=== PATIENT | female | born 1950 | race Two or more races ===

== ENCOUNTER 2018-04-29 15:56 | Inpatient (IN) | payer MEDICARE, MEDICAID ==
[~2018-04-29] VITALS: Ht 152.4 cm; Wt 56.7 kg
--- NOTE | 2018-04-29 16:00 | NUR ---
ADMIT A FEMALE PT IN RM 2B, BROUGHT IN BY PARAMEDICS ON 5150 HOLD. ACCORDINGLY, PT KEEPS ON TALKING TO HESRSELF.
[2018-04-29 16:55] LABS: BASOPHILS # (AUTO) 0.1 K/uL (0.0-8.0); BASOPHILS % (AUTO) 1.2 % (0.0-2.0); EOSINOPHILS # (AUTO) 0.3 K/uL (0.0-0.7); EOSINOPHILS % (AUTO) 3.8 % (0.0-7.0); HEMATOCRIT 38.6 % (31.2-41.9); HEMOGLOBIN 12.8 g/dL (10.9-14.3); LYMPHOCYTES # (AUTO) 1.9 K/uL (20.0-40.0); LYMPHOCYTES % (AUTO) 20.6 % (20.5-51.5); MEAN CORPUSCULAR HEMOGLOBIN 30.4 uug (24.7-32.8); MEAN CORPUSCULAR HGB CONC 33 g/dL (32.3-35.6); MEAN CORPUSCULAR VOLUME 91.3 fL (75.5-95.3); MONOCYTES # (AUTO) 0.9 K/uL (2.0-10.0); MONOCYTES % (AUTO) 9.8 % (0.0-11.0); NEUTROPHILS # (AUTO) 5.9 K/uL (1.8-8.9); NEUTROPHILS % (AUTO) 64.6 % (38.5-71.5); PLATELET COUNT (AUTO) 184 K/uL (179-408); RED BLOOD CELL COUNT(AUTO) 4.23 MIL/uL (3.63-4.92); WHITE BLOOD COUNT (AUTO) 9.1 K/uL (3.8-11.8)
[2018-04-29 17:01] LABS: CARBON DIOXIDE 27 mmol/L (21-32); CHLORIDE 105 mmol/L (98-107); CREATININE 1.2 mg/dL (0.6-1.3); GLUCOSE 91 mg/dL (74-106); UREA NITROGEN, BLOOD 31 mg/dL (7-18)
[2018-04-29] MEDS ORDERED: MAG-55 PO (17:07)
[2018-04-29] MEDS ORDERED: DOCU240C26 PO (17:07)
[2018-04-29] MEDS ORDERED: LORA0.5T PO (17:07)
[2018-04-29] MEDS ORDERED: CRAN405C PO (17:07)
[2018-04-29] MEDS ORDERED: ACET-2154 PO (17:07)
[2018-04-29] MEDS ORDERED: NA P133E RC (17:07)
[2018-04-29] MEDS ORDERED: CALC1TAB30 PO (17:07)
[2018-04-29] MEDS ORDERED: TRAZ-182 PO (17:07)
[2018-04-29] MEDS ORDERED: MAG30ORA PO (17:07)
[2018-04-29] MEDS ORDERED: AMLO5TAB7 PO (17:07)
[2018-04-29] MEDS ORDERED: QUET100T PO (17:07)
[2018-04-29] MEDS ORDERED: SENN-167 PO (17:07)
[2018-04-29] MEDS ORDERED: [UNRECOGNIZED DRUG - OTHER] PO (17:07)
[2018-04-29] MEDS ORDERED: VALP250S3 PO (17:07)
[2018-04-29] MEDS ORDERED: MAGN400O6 PO (17:07)
[2018-04-29] MEDS ORDERED: FERR325T24 PO (17:07)
[2018-04-29] MEDS ORDERED: ZINC220C6 PO (17:07)
[2018-04-29] MEDS ORDERED: PSYLLIUM PO (17:07)
[2018-04-29] MEDS ORDERED: DULCOLAX SUPP PR (17:07)
[2018-04-29] MEDS ORDERED: ASCO500C18 PO (17:07)
[2018-04-29] MEDS ORDERED: MULT1TAB73 PO (17:07)
[2018-04-29 17:08] LABS: ALANINE AMINOTRANSFERASE 22 U/L (14-59); ALKALINE PHOSPHATASE 124 U/L (50-136); ASPARTATE AMINOTRANSFERASE 20 U/L (15-37); BILIRUBIN,DIRECT 0.1 mg/dL (0.0-0.2); BILIRUBIN,TOTAL 0.2 mg/dL (0.2-1.0); TOTAL PROTEIN, SERUM 7.9 g/dL (6.4-8.2)
[2018-04-29 17:12] LABS: ACETAMINOPHEN < 2.0 ug/mL (10-30)
[2018-04-29 17:14] LABS: ETHANOL < 3 MG/DL (0-0)
[2018-04-29] MEDS ORDERED: OLANZAPINE 5 MG TABLET PO ONE (17:45)
[2018-04-29] MEDS ORDERED: OLANZAPINE 5 MG TABLET ONE (17:51)
--- NOTE | 2018-04-29 18:00 | NUR ---
.PT IS BEING ADMITTED TO U RM 139A. REPORT GIVEN TO ABHAY CALDERÓN.
--- NOTE | 2018-04-29 18:30 | NUR ---
PT TRANSFERRED TO [facility] VIA W/C. CONDITION IS STABLE.
--- NOTE | 2018-04-29 18:52 | NUR ---
1820 Report received from ER nurse, Isadora regarding patient who will be admitted to MHU. 1830 Received patient from ER per w/c , alert and Ox2 . Respiration even and unlabored , no s/s acute distress. Denies S/s pain. Ushered to her room ambulating, given sandwich for dinner. Will give report to next shift.
[2018-04-29] MEDS ORDERED: MAGNESIUM HYDROXIDE 30 ML LIQUID UDC PO PRN ×2 (19:00→22:45)
[2018-04-29] MEDS ORDERED: MAG HYDROX/AL HYDROX/SIMETH 30 ML LIQUID UDC PO PRN (19:00)
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
[2018-04-29 21:34] VITALS: BP 133/71
[2018-04-29] MEDS: ACETAMINOPHEN 325 MG TABLET PO PRN (21:47)
[2018-04-29] MEDS: ZOLPIDEM 5 MG TABLET PO PRN (21:50)
--- NOTE | 2018-04-29 21:50 | NUR ---
PATIENT APPROACHED THE NURSING STATION, SHE STATED THAT SHE IS HAVING LEFT EAR DISCOMFORT. TYLENOL 650MG PO PRN WAS GIVEN FOR PAIN. WILL MONITOR. SHE ALSO STATED THAT SHE WAS UNABLE TO SLEEP. AMBIEN 5MG PO PRN WAS GIVEN FOR INSOMNIA. PT CONTINUE REFUSING BODY ASSESSMENT. WILL CONTINUE TO MONITOR.
[2018-04-29] MEDS ORDERED: BISACODYL 10 MG SUPP.RECT RC PRN (22:45)
[2018-04-29] MEDS ORDERED: SENNOSIDES 1 TABLET PO PRN (22:45)
[2018-04-29] MEDS: LORAZEPAM 0.5 MG TABLET PO PRN (23:04)
--- NOTE | 2018-04-29 23:10 | NUR ---
PATIENT APPROACHED THE NURSING STATION, SHE WAS NOTED ANXIOUS AND IRRITABLE. SHE ASKED FOR SNACKS. ATIVAN 0.5MG PO PRN WAS GIVEN FOR ANXIETY/AGITATION. SNACKS WERE ALSO GIVEN, WILL CONTINUE TO MONITOR,
--- NOTE | 2018-04-30 06:52 | NUR ---
PATIENT SLEPT FOR APPROX 7.45 HRS THROUGH THE NIGHT. URINE WAS OBTAINED AND SENT OUT FOR URINALYSIS, UA C&S AND UA DRUG SCREENING. PATIENT CONTINUE REFUSING BODY ASSESSMENT. WILL CONTINUE TO MONITOR.
[2018-04-30 07:07] LABS: *BILIRUBIN,URIN NEGATIVE (NEGATIVE); *BLOOD, URINE NEGATIVE (NEGATIVE); *CLARITY,URINE CLEAR (CLEAR); *COLOR,URINE YELLOW (YELLOW); *KETONES,URINE NEGATIVE (NEGATIVE); *PROTEIN,URINE NEGATIVE (NEGATIVE); *UROBILINOGEN,URINE 0.2 E.U./dl (NORMAL); LEUKOCYTE ESTERASE ,URINE TRACE (NEGATIVE); NITRITE, URINE NEGATIVE (NEGATIVE); PH,URINE 6.5 (5.0-8.0); UGLUCOSE NEGATIVE (NEGATIVE)
[2018-04-30 07:11] LABS: BACTERIA,URINE FEW /HPF (NONE SEEN); RBC,URINE 0-3 /HPF (0-3); SQUAMOUS EPITHELIAL CELL,UR FEW /HPF (NONE SEEN); WBC,URINE 0-3 /HPF (0-3)
[2018-04-30 07:27] LABS: BASOPHILS # (AUTO) 0.1 K/uL (0.0-8.0); BASOPHILS % (AUTO) 1.1 % (0.0-2.0); EOSINOPHILS # (AUTO) 0.4 K/uL (0.0-0.7); EOSINOPHILS % (AUTO) 5.9 % (0.0-7.0); HEMATOCRIT 37.9 % (31.2-41.9); HEMOGLOBIN 12.8 g/dL (10.9-14.3); LYMPHOCYTES # (AUTO) 1.4 K/uL (20.0-40.0); LYMPHOCYTES % (AUTO) 22.2 % (20.5-51.5); MEAN CORPUSCULAR HEMOGLOBIN 30.8 uug (24.7-32.8); MEAN CORPUSCULAR HGB CONC 34 g/dL (32.3-35.6); MEAN CORPUSCULAR VOLUME 91.4 fL (75.5-95.3); MONOCYTES # (AUTO) 0.9 K/uL (2.0-10.0); MONOCYTES % (AUTO) 15.3 % (0.0-11.0); NEUTROPHILS # (AUTO) 3.4 K/uL (1.8-8.9); NEUTROPHILS % (AUTO) 55.5 % (38.5-71.5); PLATELET COUNT (AUTO) 181 K/uL (179-408); RED BLOOD CELL COUNT(AUTO) 4.15 MIL/uL (3.63-4.92); WHITE BLOOD COUNT (AUTO) 6.1 K/uL (3.8-11.8)
[2018-04-30 07:30] VITALS: BP 136/61
[2018-04-30] MEDS ORDERED: SENNOSIDES 1 TABLET PO PRN (07:30)
[2018-04-30 07:45] LABS: *AMPHETAMINE, URINE NEGATIVE (NEGATIVE); *BARBITURATE, URINE NEGATIVE (NEGATIVE); *CANNABINOID, URINE NEGATIVE (NEGATIVE); *COCCAINE, URINE NEGATIVE (NEGATIVE); *OPIATE, URINE NEGATIVE (NEGATIVE); *PHENCYCLIDINE SCREEN,URINE NEGATIVE (NEGATIVE)
[2018-04-30 08:34] LABS: CREATININE 1.1 mg/dL (0.6-1.3); MAGNESIUM 2.1 mg/dL (1.8-2.4); PHOSPHOROUS 5.2 mg/dL (2.5-4.9); POTASSIUM 5.1 mmol/L (3.5-5.1)
[2018-04-30] MEDS ORDERED: Medication Not On Formulary EA (Docusate Calcium 240 MG) PO SCH (09:00)
[2018-04-30] MEDS ORDERED: Medication Not On Formulary EA (Ascorbic Acid (Vitamin C) 500 MG) PO SCH (09:00)
[2018-04-30] MEDS ORDERED: Medication Not On Formulary EA (Multivitamins (Multivitamin) 1 TAB) PO SCH (09:00)
[2018-04-30] MEDS: MULTIVITAMINS,THERAPEUTIC TABLET PO SCH (09:22)
[2018-04-30] MEDS: ZINC SULFATE 220 MG CAPSULE PO SCH (09:22)
[2018-04-30] MEDS: AMLODIPINE 5 MG TABLET PO SCH (09:23)
[2018-04-30] MEDS: ASCORBIC ACID 500 MG TABLET PO SCH (09:23)
[2018-04-30] MEDS: DOCUSATE SODIUM 250 MG CAPSULE PO SCH (09:23)
[2018-04-30] MEDS: FERROUS SULFATE 325 MG TABEC PO SCH (09:48)
[2018-04-30] MEDS: CALCIUM CARB/VITAMIN D 500MG-200UNITS TABLET PO SCH (09:48)
[2018-04-30] MEDS: NICOTINE 7 MG/24HR PATCH TD SCH (09:48)
[2018-04-30 10:04] LABS: THYROID STIMULATING HORMONE 3.433 mIU/mL (0.358-3.740)
[2018-04-30] MEDS: OLANZAPINE ZYDIS 5 MG TAB.RAPDIS PO SCH ×2 (11:41→16:52)
[2018-04-30] MEDS: ACETAMINOPHEN 325 MG TABLET PO PRN ×2 (11:41→23:08)
[2018-04-30] MEDS: DIVALPROEX 250 MG TABLET.DR PO SCH ×3 (11:43→16:52)
[2018-04-30 11:57] LABS: LYMPHOCYTES % (MANUAL) 22 % (20-40); MONOCYTES % (MANUAL) 15 % (2-10)
[2018-04-30 11:58] LABS: EOSINOPHILS % (MANUAL) 6 % (0-8); NEUTROPHILS % (MANUAL) 57 % (42-75)
[2018-04-30] MEDS: CEPHALEXIN MONOHYDRATE 500 MG CAPSULE PO SCH ×3 (12:33→20:41)
--- NOTE | 2018-04-30 14:13 | NUR ---
1300 DEPAKOTE DOSE 250 MG NOT ADMINISTERED TOO CLOSE TO FIRST DOSE WHICH WAS GIVEN AT 1143 aLSO kEFLEX 500 MG CAP. STARTED AT 1233.
--- NOTE | 2018-04-30 14:17 | NUR ---
KEFLEX 500 MG DUE AT 1400 NOT GIVEN TOO CLOSE TO FIRST DOSE WHICH WAS GIVEN 1228
--- NOTE | 2018-04-30 14:55 | NUR ---
Firearms Report: Salon Professional completed and submitted [employer] Firearms Report on 04/30/18 for 5150 DTO certification.
[2018-04-30 16:04] VITALS: BP 114/62
--- NOTE | 2018-04-30 20:00 | NUR ---
RECEIVED PATIENT IN THE HALLWAY, SHE IS NOTED A/O X 2. SHE IS ABLE TO AMBULATE WITH STEADY GAIT AND ABLE TO MAKE HER NEEDS KNOWN. SHE IS NOTED HYPERVERBAL, LOUD, PRESSURED SPEECH, DEMANDING, EATS A LOT, COMPULSIVELY OVER EATING, PACING THE HALLWAY. NO AGGRESSIVE/COMBATIVE BX NOTED AT THIS TIME. ATIVAN 0.5MG PO PRN WAS GIVEN FOR ANXIETY/AGITATION. DENIES PAIN, V/S STABLE. PATIENT ABLE TO COMPLY WITH MEDICATION REGIMENT. SAFETY EMPHASIS, BED AT LOWEST POSITION, WHEELS LOCKED, AND FREQUENT HEAD CHECKS. WILL CONTINUE TO MONITOR,
[2018-04-30] MEDS: LORAZEPAM 0.5 MG TABLET PO PRN (20:02)
[2018-04-30 20:33] VITALS: BP 145/82
[2018-04-30] MEDS: ZOLPIDEM 5 MG TABLET PO PRN (21:53)
--- NOTE | 2018-05-01 01:49 | NUR ---
PATIENT APPROACHED THE NURSING STATION. SHE STATED THAT SHE JUST WOKE UP AND WAS UNABLE TO GO BACK TO SLEEP. SHE ASKED FOR MILK. SHE IS NOW SITTING IN A CHAIR IN THE MAIN HALLWAY, SHE IS NOTED CALM AND PLEASANT. WILL CONTINUE TO MONITOR.
[2018-05-01] MEDS: LORAZEPAM 0.5 MG TABLET PO PRN ×3 (02:19→22:39)
[2018-05-01] MEDS: CEPHALEXIN MONOHYDRATE 500 MG CAPSULE PO SCH ×3 (06:13→21:04)
--- NOTE | 2018-05-01 07:07 | NUR ---
PATIENT SLEPT FOR APPROX 1.OO HR THROUGH THE NIGHT. CONTINUE COMPLIANT WITH MEDICATION AT THIS TIME.
[2018-05-01 08:16] VITALS: BP 134/72
[2018-05-01] MEDS: DIVALPROEX 250 MG TABLET.DR PO SCH ×3 (08:18→16:48)
[2018-05-01] MEDS: OLANZAPINE ZYDIS 5 MG TAB.RAPDIS PO SCH ×2 (08:18→20:33)
[2018-05-01] MEDS: FERROUS SULFATE 325 MG TABEC PO SCH (08:18)
[2018-05-01] MEDS: DOCUSATE SODIUM 250 MG CAPSULE PO SCH (08:18)
[2018-05-01] MEDS: ASCORBIC ACID 500 MG TABLET PO SCH (08:19)
[2018-05-01] MEDS: MULTIVITAMINS,THERAPEUTIC TABLET PO SCH (08:19)
[2018-05-01] MEDS: AMLODIPINE 5 MG TABLET PO SCH (08:19)
[2018-05-01] MEDS: ZINC SULFATE 220 MG CAPSULE PO SCH (08:19)
[2018-05-01] MEDS: NICOTINE 7 MG/24HR PATCH TD SCH (08:20)
[2018-05-01] MEDS: CALCIUM CARB/VITAMIN D 500MG-200UNITS TABLET PO SCH (08:20)
--- NOTE | 2018-05-01 10:45 | NUR ---
Initial Discharge Instructions: Patient currently resides at [facility] [[address] [place] [address]; ]. Spoke with CJ at the facility who reports they will accept the patient back upon discharge. SW will continue to collaborate with pt and MD regarding most appropriate discharge plans for this patient. SW will form a safe and proper discharge plan.
[2018-05-01] MEDS ORDERED: OLANZAPINE ZYDIS 5 MG TAB.RAPDIS PO PRN (14:15)
[2018-05-01 16:10] VITALS: BP 125/74
[2018-05-01] MEDS: MUPIROCIN 2% OINT 22 GM TUBE NS SCH ×2 (16:49→20:33)
[2018-05-01] MEDS: BENZOCAINE/MENTH/CETYLPYRD LOZENGE MM PRN ×3 (17:49→20:34)
[2018-05-01 20:48] VITALS: BP 130/72
[2018-05-02] MEDS: LORAZEPAM 0.5 MG TABLET PO PRN ×2 (03:51→19:54)
--- NOTE | 2018-05-02 04:54 | NUR ---
up and about. aaox2 took only an hour of sleep. most of the time awake all night. needs attended. took all her meds. became restless and anxious ativan given @ 2230. on antibiotic. also complained of sore throat cepacol lozenges given. On contact isolation for MRSA on the nares. on bactroban. became loud and disruptive and keeps on walking back and forth from room to the hallwiu. Had another dose of ativan. still very loud and anxious. will monitor patient's behavior.
[2018-05-02] MEDS: CEPHALEXIN MONOHYDRATE 500 MG CAPSULE PO SCH (06:24)
[2018-05-02] MEDS: FERROUS SULFATE 325 MG TABEC PO SCH (06:36)
[2018-05-02] MEDS: MULTIVITAMINS,THERAPEUTIC TABLET PO SCH (08:07)
[2018-05-02] MEDS: ZINC SULFATE 220 MG CAPSULE PO SCH (08:07)
[2018-05-02] MEDS: DIVALPROEX 250 MG TABLET.DR PO SCH ×3 (08:07→16:49)
[2018-05-02] MEDS: ASCORBIC ACID 500 MG TABLET PO SCH (08:07)
[2018-05-02] MEDS: DOCUSATE SODIUM 250 MG CAPSULE PO SCH (08:07)
[2018-05-02] MEDS: CALCIUM CARB/VITAMIN D 500MG-200UNITS TABLET PO SCH (08:07)
[2018-05-02] MEDS: OLANZAPINE ZYDIS 5 MG TAB.RAPDIS PO SCH ×3 (08:07→19:55)
[2018-05-02] MEDS: NICOTINE 7 MG/24HR PATCH TD SCH (08:08)
[2018-05-02] MEDS: MUPIROCIN 2% OINT 22 GM TUBE NS SCH ×2 (08:08→19:54)
[2018-05-02] MEDS: AMLODIPINE 5 MG TABLET PO SCH (08:08)
[2018-05-02 08:22] VITALS: BP 122/75
[2018-05-02 16:00] VITALS: BP 104/68
[2018-05-02] MEDS: ACETAMINOPHEN 325 MG TABLET PO PRN (19:54)
[2018-05-02 19:56] VITALS: BP 117/62
[2018-05-02] MEDS: BENZTROPINE MESYLATE 1 MG TABLET PO SCH (22:57)
[2018-05-02] MEDS: HALOPERIDOL 5 MG TABLET PO SCH (22:57)
[2018-05-03] MEDS: TEMAZEPAM 7.5 MG CAPSULE PO PRN
--- NOTE | 2018-05-03 06:00 | NUR ---
End of shift report: Patient compliant with meds & care, morning shower provided today. No acute distress, vital signs WNL. Slept 4 hrs.
[2018-05-03] MEDS: FERROUS SULFATE 325 MG TABEC PO SCH (06:07)
[2018-05-03 07:30] VITALS: BP 130/59
[2018-05-03] MEDS: CALCIUM CARB/VITAMIN D 500MG-200UNITS TABLET PO SCH (08:22)
[2018-05-03] MEDS: AMLODIPINE 5 MG TABLET PO SCH (08:22)
[2018-05-03] MEDS: BENZTROPINE MESYLATE 1 MG TABLET PO SCH ×2 (08:22→20:08)
[2018-05-03] MEDS: NICOTINE 7 MG/24HR PATCH TD SCH (08:22)
[2018-05-03] MEDS: DOCUSATE SODIUM 250 MG CAPSULE PO SCH (08:22)
[2018-05-03] MEDS: DIVALPROEX 250 MG TABLET.DR PO SCH ×3 (08:22→16:48)
[2018-05-03] MEDS: HALOPERIDOL 5 MG TABLET PO SCH ×2 (08:22→20:08)
[2018-05-03] MEDS: ZINC SULFATE 220 MG CAPSULE PO SCH (08:22)
[2018-05-03] MEDS: MULTIVITAMINS,THERAPEUTIC TABLET PO SCH (08:22)
[2018-05-03] MEDS: ASCORBIC ACID 500 MG TABLET PO SCH (08:22)
[2018-05-03] MEDS: MUPIROCIN 2% OINT 22 GM TUBE NS SCH ×2 (08:23→20:08)
[2018-05-03 09:36] VITALS: BP 130/59
[2018-05-03] MEDS: BENZOCAINE/MENTH/CETYLPYRD LOZENGE MM PRN (10:33)
[2018-05-03 15:12] VITALS: BP 116/69
[2018-05-03 20:39] VITALS: BP 116/72
[2018-05-04] MEDS: TEMAZEPAM 7.5 MG CAPSULE PO PRN ×2 (00:41→21:15)
[2018-05-04] MEDS: BENZOCAINE/MENTH/CETYLPYRD LOZENGE MM PRN (01:58)
--- NOTE | 2018-05-04 02:23 | NUR ---
GPS: Pt.still awake at this time. Restoril 7.5mg given earlier was ineffective. Refused to have repeat dose of Restoril when offered. Pt.continues to be labile,intrusive and easily irritable. Easily gets angry when being re-directed. Will continue to monitor.
[2018-05-04] MEDS: FERROUS SULFATE 325 MG TABEC PO SCH (06:35)
--- NOTE | 2018-05-04 06:42 | NUR ---
GPS: Remain uncooperative with care. slept 1:30 hrs only through the night,offered sleeping medication but patient refused stated you want me to sleep forever. compliant with AM PO meds. No acute distress, vital signs Wnl. continue plan of care. Addendum: 05/04/18 at 0654 by PAIGE ISLAS LVN patient refused repeat restoril 7.5 mg . compliant with first prn dose.
[2018-05-04 07:04] LABS: BILIRUBIN,TOTAL 0.2 mg/dL (0.2-1.0); CREATININE 1.2 mg/dL (0.6-1.3); MAGNESIUM 2.3 mg/dL (1.8-2.4); PHOSPHOROUS 5.3 mg/dL (2.5-4.9); POTASSIUM 5.2 mmol/L (3.5-5.1); TOTAL PROTEIN, SERUM 8.3 g/dL (6.4-8.2)
[2018-05-04 07:13] LABS: BASOPHILS # (AUTO) 0.1 K/uL (0.0-8.0); BASOPHILS % (AUTO) 1.4 % (0.0-2.0); EOSINOPHILS # (AUTO) 0.4 K/uL (0.0-0.7); HEMATOCRIT 38.7 % (31.2-41.9); HEMOGLOBIN 12.8 g/dL (10.9-14.3); LYMPHOCYTES # (AUTO) 1.9 K/uL (20.0-40.0); LYMPHOCYTES % (AUTO) 27.9 % (20.5-51.5); MEAN CORPUSCULAR HEMOGLOBIN 30.2 uug (24.7-32.8); MEAN CORPUSCULAR HGB CONC 33 g/dL (32.3-35.6); MEAN CORPUSCULAR VOLUME 91.5 fL (75.5-95.3); MONOCYTES # (AUTO) 0.9 K/uL (2.0-10.0); MONOCYTES % (AUTO) 13.1 % (0.0-11.0); NEUTROPHILS # (AUTO) 3.5 K/uL (1.8-8.9); NEUTROPHILS % (AUTO) 51.6 % (38.5-71.5); PLATELET COUNT (AUTO) 240 K/uL (179-408); RED BLOOD CELL COUNT(AUTO) 4.22 MIL/uL (3.63-4.92); WHITE BLOOD COUNT (AUTO) 6.7 K/uL (3.8-11.8)
[2018-05-04 07:30] VITALS: BP 113/62
[2018-05-04] MEDS: MULTIVITAMINS,THERAPEUTIC TABLET PO SCH (08:09)
[2018-05-04] MEDS: NICOTINE 7 MG/24HR PATCH TD SCH (08:09)
[2018-05-04] MEDS: ZINC SULFATE 220 MG CAPSULE PO SCH (08:09)
[2018-05-04] MEDS: DIVALPROEX 250 MG TABLET.DR PO SCH ×3 (08:09→16:34)
[2018-05-04] MEDS: HALOPERIDOL 5 MG TABLET PO SCH (08:09)
[2018-05-04] MEDS: BENZTROPINE MESYLATE 1 MG TABLET PO SCH (08:09)
[2018-05-04] MEDS: AMLODIPINE 5 MG TABLET PO SCH (08:09)
[2018-05-04] MEDS: CALCIUM CARB/VITAMIN D 500MG-200UNITS TABLET PO SCH (08:09)
[2018-05-04] MEDS: ASCORBIC ACID 500 MG TABLET PO SCH (08:09)
[2018-05-04] MEDS: DOCUSATE SODIUM 250 MG CAPSULE PO SCH (08:21)
[2018-05-04] MEDS: MUPIROCIN 2% OINT 22 GM TUBE NS SCH ×2 (08:21→20:11)
[2018-05-04 16:24] VITALS: BP 116/60
[2018-05-04 20:00] VITALS: BP 148/61
--- NOTE | 2018-05-04 20:10 | NUR ---
PATIENT IS VERY AGITATED. GIVEN ATIVAN 0.5MG PO PRN FOR AGITATION. NEEDS FREQUENT REDIRECTION. WILL CONTINUE TO MONITOR AND ASSESS.
[2018-05-04] MEDS: LORAZEPAM 0.5 MG TABLET PO PRN (20:11)
--- NOTE | 2018-05-04 21:15 | NUR ---
PATIENT CALM AT THIS TIME. LABILE MOOD. PATIENT GIVEN RESTORIL 7.5MG PO PRN FOR SLEEP. WILL CONTINUE TO MONITOR AND ASSESS.
[2018-05-05] MEDS: LORAZEPAM 0.5 MG TABLET PO PRN ×2 (05:03→23:21)
[2018-05-05] MEDS: ACETAMINOPHEN 325 MG TABLET PO PRN (05:03)
--- NOTE | 2018-05-05 05:04 | NUR ---
PATIENT IS VERY ANXIOUS AND PACING IN HALLWAY. PATIENT IS ALSO C/O HEADACHE. GIVEN ATIVAN 0.5MG PO PRN FOR ANXIETY AND TYLENOL 650MG PO PRN FOR HEADACHE. WILL CONTINUE TO MONITOR AND ASSESS.
--- NOTE | 2018-05-05 06:36 | NUR ---
PATIENT AWAKE. CONTINUES WITH LABILE MOOD. EASILY AGITATED. PATIENT SLEPT ONLY 2 HOURS THROUGHOUT THE NIGHT. ALL NEEDS ATTENDED. WILL CONTINUE TO MONITOR.
[2018-05-05 07:16] LABS: CREATININE 1.2 mg/dL (0.6-1.3); PHOSPHOROUS 4.8 mg/dL (2.5-4.9); POTASSIUM 5.3 mmol/L (3.5-5.1)
[2018-05-05 07:30] VITALS: BP 123/69
[2018-05-05] MEDS: FERROUS SULFATE 325 MG TABEC PO SCH (08:47)
[2018-05-05] MEDS: BENZTROPINE MESYLATE 1 MG TABLET PO SCH ×5 (08:47→16:57)
[2018-05-05] MEDS: DOCUSATE SODIUM 250 MG CAPSULE PO SCH (08:47)
[2018-05-05] MEDS: MULTIVITAMINS,THERAPEUTIC TABLET PO SCH (08:48)
[2018-05-05] MEDS: ASCORBIC ACID 500 MG TABLET PO SCH (08:48)
[2018-05-05] MEDS: ZINC SULFATE 220 MG CAPSULE PO SCH (08:48)
[2018-05-05] MEDS: AMLODIPINE 5 MG TABLET PO SCH (08:48)
[2018-05-05] MEDS: CALCIUM CARB/VITAMIN D 500MG-200UNITS TABLET PO SCH (08:49)
[2018-05-05] MEDS: DIVALPROEX 250 MG TABLET.DR PO SCH ×4 (08:52→20:22)
[2018-05-05] MEDS: NICOTINE 7 MG/24HR PATCH TD SCH (08:52)
[2018-05-05] MEDS: MUPIROCIN 2% OINT 22 GM TUBE NS SCH ×2 (08:52→20:22)
[2018-05-05] MEDS ORDERED: HALOPERIDOL 5 MG TABLET PO SCH (09:00)
[2018-05-05] MEDS ORDERED: SODIUM POLYSTYRENE SULFONATE 15 G/60 ML LIQUID UDC PO ONE (10:30)
[2018-05-05] MEDS: HALOPERIDOL 5 MG TABLET PO SCH ×3 (12:21→20:22)
[2018-05-05 15:42] VITALS: BP 119/33
[2018-05-05 19:30] VITALS: BP 133/67
--- NOTE | 2018-05-05 19:30 | NUR ---
Received patient from day shift nurse. Patient currently in the day room in a labile mood. Noted to be easily agitated upon assessment. Vital signs within range at start of shift. Patient denying S.I. & has no active plan. On contact isolation for MRSA of the nares. on a 14 day hold until 05/15/18. Room checked for safety at start of shift. Will continue to provide a safe & therapeutic environment.
[2018-05-05] MEDS: BENZOCAINE/MENTH/CETYLPYRD LOZENGE MM PRN (21:09)
--- NOTE | 2018-05-06 06:21 | NUR ---
Patient agreed to shower last night before sleeping. Compliant with medications. Had to reorient patient several times during the shift. Easily agitated & continues with labile mood. Administered Ativan 0.5mg PRN for agitation & restlessness. Tolerated well. Patient slept total of 4.5 hours during the night. All needs attended to promptly. Safety & comfort measures provided. Will endorse accordingly to day shift nurse.
[2018-05-06] MEDS: FERROUS SULFATE 325 MG TABEC PO SCH (06:34)
[2018-05-06 07:30] VITALS: BP 123/58
[2018-05-06] MEDS: HALOPERIDOL 5 MG TABLET PO SCH ×4 (08:10→20:02)
[2018-05-06] MEDS: ASCORBIC ACID 500 MG TABLET PO SCH (08:10)
[2018-05-06] MEDS: DIVALPROEX 250 MG TABLET.DR PO SCH ×4 (08:10→20:01)
[2018-05-06] MEDS: ZINC SULFATE 220 MG CAPSULE PO SCH (08:11)
[2018-05-06] MEDS: MULTIVITAMINS,THERAPEUTIC TABLET PO SCH (08:11)
[2018-05-06] MEDS: AMLODIPINE 5 MG TABLET PO SCH (08:11)
[2018-05-06] MEDS: BENZTROPINE MESYLATE 1 MG TABLET PO SCH ×4 (08:11→17:00)
[2018-05-06] MEDS: DOCUSATE SODIUM 250 MG CAPSULE PO SCH (08:11)
[2018-05-06] MEDS: MUPIROCIN 2% OINT 22 GM TUBE NS SCH ×2 (08:12→20:01)
[2018-05-06] MEDS: CALCIUM CARB/VITAMIN D 500MG-200UNITS TABLET PO SCH (08:12)
[2018-05-06] MEDS: NICOTINE 7 MG/24HR PATCH TD SCH (08:13)
[2018-05-06] MEDS: BENZOCAINE/MENTH/CETYLPYRD LOZENGE MM PRN (10:17)
[2018-05-06] MEDS: LORAZEPAM 0.5 MG TABLET PO PRN ×2 (11:40→22:18)
[2018-05-06 17:26] VITALS: BP_SYST 115; BP_SYST 94; BP_DIAS 54; BP_DIAS 74
[2018-05-06 20:20] VITALS: BP 124/62
[2018-05-06] MEDS: TEMAZEPAM 7.5 MG CAPSULE PO PRN (21:19)
--- NOTE | 2018-05-06 22:00 | NUR ---
received to care, pleasant upon approach. intrusive and pacing at times, requiring frequent redirection. PRN restoril was given at 2118. as of 2199, she remains awake, pacing intermittently. will continue to monitor closely.
--- NOTE | 2018-05-06 22:18 | NUR ---
remains awake. PRN ativan given, for anxiety.
--- NOTE | 2018-05-07 00:30 | NUR ---
appears to be asleep. no distress noted.
--- NOTE | 2018-05-07 06:00 | NUR ---
slept 4.0 hours total. continues to sleep. no distress noted.
[2018-05-07 07:30] VITALS: BP 175/69
[2018-05-07] MEDS: DIVALPROEX 250 MG TABLET.DR PO SCH (08:13)
[2018-05-07] MEDS: HALOPERIDOL 5 MG TABLET PO SCH (08:13)
[2018-05-07] MEDS: ZINC SULFATE 220 MG CAPSULE PO SCH (08:13)
[2018-05-07] MEDS: BENZTROPINE MESYLATE 1 MG TABLET PO SCH (08:13)
[2018-05-07] MEDS: ASCORBIC ACID 500 MG TABLET PO SCH (08:13)
[2018-05-07] MEDS: MUPIROCIN 2% OINT 22 GM TUBE NS SCH (08:13)
[2018-05-07] MEDS: FERROUS SULFATE 325 MG TABEC PO SCH (08:13)
[2018-05-07] MEDS: MULTIVITAMINS,THERAPEUTIC TABLET PO SCH (08:13)
[2018-05-07] MEDS: DOCUSATE SODIUM 250 MG CAPSULE PO SCH (08:13)
[2018-05-07] MEDS: NICOTINE 7 MG/24HR PATCH TD SCH (08:14)
[2018-05-07] MEDS: CALCIUM CARB/VITAMIN D 500MG-200UNITS TABLET PO SCH (08:14)
[2018-05-07 08:19] VITALS: BP 175/69
[2018-05-07] MEDS: AMLODIPINE 5 MG TABLET PO SCH (08:19)
--- NOTE | 2018-05-07 09:12 | NUR ---
Discharge Note: Patient will be discharged back to [facility] [[address] [place] [address]; ] via ambulance. Please arrange an ambulance for this patient. Spoke with Jd and DAIANA at the facility who state they are ready to accept the patient back today. Patient does not have any family or friends to contact at this time. Patient is aware and agreeable with discharge plans. Patient will follow-up at the facility with Dr. Cole (Restaurant Delivery Driver) and Dr. Cornelius (Psychiatrist). For smoking cessation, patient was referred to [employer] 800-LUNGUSA and [employer] [phone].
--- NOTE | 2018-05-07 13:01 | NUR ---
PT TRANSFERRED TO [facility] [place] VIA AMBULANCE. REPORT GIVEN TO STEPHANE SALINAS.
--- NOTE | 2018-05-07 13:03 | NUR ---
PT DISCHARGED VIA AMBULANCE. PT HAS NO SUICIDAL/HOMICIDAL IDEATION, VISUAL/AUDITORY HALLUCINATION. PT ATE LUNCH IN DINING AREA, PLEASANT WITH FELLOW RESIDENTS. VITAL SIGNS TAKEN AND STABLE. REPORT GIVEN TO AMBULANCE PERSONNEL BY STEPHANE FULLER.
== END 2018-05-07 12:45 | DRG 885 ==
LOC: ER 15:57 → GPS 18:07
PROVIDERS: ADMIT Psychiatry & Neurology Psychosomatic Medicine; ATTEND Internal Medicine
DX: F25.0 Schizoaffective disorder, bipolar type (principal); E02 Subclinical iodine-deficiency hypothyroidism; E83.39 Other disorders of phosphorus metabolism; Z22.322 Carrier or suspected carrier of Methicillin resistant Staphylococcus aureus; F09 Unspecified mental disorder due to known physiological condition; R79.89 Other specified abnormal findings of blood chemistry; I10 Essential (primary) hypertension; F17.200 Nicotine dependence, unspecified, uncomplicated; E87.5 Hyperkalemia
CPT/HCPCS: 36415; 70450; 80164; 80307; 83735; 84100; 84132; 84443; 85025; 87086; A4663; A9150; G0480; G0480-TC; J3490

== ENCOUNTER 2018-06-02 20:02 | Inpatient (IN) | payer MEDICARE, MEDICAID ==
[~2018-06-02] VITALS: Ht 162.6 cm; Wt 56.7 kg
[~2018-06-02 20:02] MED LIST: ACET-2154 PO; AMLO5TAB7 PO; ASCO500C18 PO; CALC1TAB30 PO; CRAN405C PO; DOCU240C26 PO; DULCOLAX SUPP PR; FERR325T24 PO; MAG-55 PO; MAG30ORA PO; MAGN400O6 PO; MULT1TAB73 PO; NA P133E RC; PSYLLIUM PO; SENN-167 PO; ZINC220C6 PO; [UNRECOGNIZED DRUG - OTHER] PO
--- NOTE | 2018-06-02 20:11 | NUR ---
Pt brought in from [facility] with 5150 hold for DTO/GD to be admitted to MHU.
[2018-06-02] MEDS ORDERED: DIVA250T4 PO (20:23)
[2018-06-02] MEDS ORDERED: MULT1TAB73 PO (20:23)
[2018-06-02] MEDS ORDERED: AMLO5TAB7 PO (20:23)
[2018-06-02] MEDS ORDERED: DOCU100C36 PO (20:23)
[2018-06-02] MEDS ORDERED: HALO5TAB12 PO (20:23)
[2018-06-02] MEDS ORDERED: LORA-258 PO (20:23)
[2018-06-02] MEDS ORDERED: FERR325T24 PO (20:23)
[2018-06-02] MEDS ORDERED: ACET-73 PO (20:23)
[2018-06-02] MEDS ORDERED: BISA10SU12 RC (20:23)
[2018-06-02] MEDS ORDERED: BENZ1LOZ58 MM (20:23)
[2018-06-02] MEDS ORDERED: ACET325T53 PO (20:23)
[2018-06-02] MEDS ORDERED: NA P133E RC (20:23)
[2018-06-02 20:31] LABS: BASOPHILS # (AUTO) 0.1 K/uL (0.0-8.0); BASOPHILS % (AUTO) 1.2 % (0.0-2.0); EOSINOPHILS # (AUTO) 0.2 K/uL (0.0-0.7); EOSINOPHILS % (AUTO) 2.8 % (0.0-7.0); HEMATOCRIT 40.7 % (31.2-41.9); HEMOGLOBIN 13.7 g/dL (10.9-14.3); LYMPHOCYTES # (AUTO) 1.9 K/uL (20.0-40.0); LYMPHOCYTES % (AUTO) 29.9 % (20.5-51.5); MEAN CORPUSCULAR HEMOGLOBIN 30.7 uug (24.7-32.8); MEAN CORPUSCULAR HGB CONC 34 g/dL (32.3-35.6); MEAN CORPUSCULAR VOLUME 91.5 fL (75.5-95.3); MONOCYTES # (AUTO) 0.7 K/uL (2.0-10.0); MONOCYTES % (AUTO) 10.5 % (0.0-11.0); NEUTROPHILS # (AUTO) 3.5 K/uL (1.8-8.9); NEUTROPHILS % (AUTO) 55.6 % (38.5-71.5); PLATELET COUNT (AUTO) 155 K/uL (179-408); RED BLOOD CELL COUNT(AUTO) 4.45 MIL/uL (3.63-4.92); WHITE BLOOD COUNT (AUTO) 6.2 K/uL (3.8-11.8)
[2018-06-02 20:48] LABS: *BILIRUBIN,URIN NEGATIVE (NEGATIVE); *BLOOD, URINE NEGATIVE (NEGATIVE); *CLARITY,URINE SLIGHTLY CLOUDY (CLEAR); *COLOR,URINE YELLOW (YELLOW); *KETONES,URINE NEGATIVE (NEGATIVE); *PROTEIN,URINE NEGATIVE (NEGATIVE); *UROBILINOGEN,URINE 0.2 E.U./dl (NORMAL); LEUKOCYTE ESTERASE ,URINE NEGATIVE (NEGATIVE); NITRITE, URINE NEGATIVE (NEGATIVE); UGLUCOSE NEGATIVE (NEGATIVE)
[2018-06-02 20:49] LABS: CARBON DIOXIDE 27 mmol/L (21-32); CHLORIDE 106 mmol/L (98-107); GLUCOSE 88 mg/dL (74-106); POTASSIUM 4.4 mmol/L (3.5-5.1); UREA NITROGEN, BLOOD 26 mg/dL (7-18)
[2018-06-02 20:54] LABS: ETHANOL < 3 MG/DL (0-0)
[2018-06-02 20:55] LABS: ALANINE AMINOTRANSFERASE 23 U/L (14-59); ALKALINE PHOSPHATASE 115 U/L (50-136); ASPARTATE AMINOTRANSFERASE 18 U/L (15-37); BILIRUBIN,DIRECT 0.1 mg/dL (0.0-0.2); BILIRUBIN,TOTAL 0.2 mg/dL (0.2-1.0); TOTAL PROTEIN, SERUM 7.9 g/dL (6.4-8.2)
[2018-06-02 20:57] LABS: *AMPHETAMINE, URINE NEGATIVE (NEGATIVE); *BARBITURATE, URINE NEGATIVE (NEGATIVE); *CANNABINOID, URINE NEGATIVE (NEGATIVE); *COCCAINE, URINE NEGATIVE (NEGATIVE); *OPIATE, URINE NEGATIVE (NEGATIVE); *PHENCYCLIDINE SCREEN,URINE NEGATIVE (NEGATIVE)
[2018-06-02 21:05] LABS: THYROID STIMULATING HORMONE 3.316 mIU/mL (0.358-3.740)
[2018-06-02 21:08] LABS: BACTERIA,URINE NONE SEEN /HPF (NONE SEEN); RBC,URINE 0-3 /HPF (0-3); SQUAMOUS EPITHELIAL CELL,UR FEW /HPF (NONE SEEN); WBC,URINE 0-3 /HPF (0-3)
[2018-06-02] MEDS ORDERED: ACETAMINOPHEN ES 500 MG TABLET ONE (21:27)
[2018-06-02] MEDS ORDERED: ACETAMINOPHEN ES 500 MG TABLET PO ONE (21:30)
--- NOTE | 2018-06-02 21:37 | NUR ---
Pt. admitted to MHU , under care of Dr. Cornelius/[employer]. Belongs List completed. MRSA swab done. Report given to Romina CALDERÓN.
[2018-06-02] MEDS ORDERED: LORAZEPAM 1 MG TABLET PO STA (21:44)
[2018-06-02] MEDS ORDERED: LORAZEPAM 1 MG TABLET ONE (21:45)
[2018-06-02] MEDS ORDERED: MAG HYDROX/AL HYDROX/SIMETH 30 ML LIQUID UDC PO PRN (22:30)
[2018-06-02] MEDS ORDERED: MAGNESIUM HYDROXIDE 30 ML LIQUID UDC PO PRN (22:30)
[2018-06-02 23:25] VITALS: BP 134/60
[2018-06-02 23:35] VITALS: BP 134/60
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
[2018-06-03 07:30] VITALS: BP 108/49
--- NOTE | 2018-06-03 10:22 | NUR ---
Firearms Report: general foundry worker completed and submitted [employer] firearms report for patient on a 5150 DTO certification.
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
--- NOTE | 2018-06-03 11:15 | NUR ---
Initial Discharge Plan: Patient currently is a resident at [facility] ([address] [place] [address]; ]. Patient states she does not want to return to SNF facility. Patient would like a different residence. However, since [facility] signed return agreement, they will be assisting in finding another placement for patient. Jd, intake almond roaster, at [facility] has agreed to help social media analyst in finding different placement for patient. Patient does not have any family listed on face sheet nor did she on last visit.
--- NOTE | 2018-06-03 12:07 | NUR ---
Discharge Planning: Patient requested a change in her psychiatrist. children's service worker assisted patient in the process of changing psychiatrists.
--- NOTE | 2018-06-03 12:25 | NUR ---
HELGA FOWLER WAS NOTIFIED ABOUT MEDICATION RECONCILIATION. NOTIFICATION WAS ACKNOWLEDGED. WAITING FOR NEW ORDERS.
[2018-06-03] MEDS: LORAZEPAM 1 MG TABLET PO PRN ×2 (13:55→20:25)
[2018-06-03] MEDS: ACETAMINOPHEN 325 MG TABLET PO PRN ×2 (13:58→20:30)
[2018-06-03 16:24] VITALS: BP 128/54
[2018-06-03 20:36] VITALS: BP 137/69
[2018-06-03] MEDS: TEMAZEPAM 7.5 MG CAPSULE PO PRN (21:16)
[2018-06-04 07:30] VITALS: BP 153/74
--- NOTE | 2018-06-04 08:00 | NUR ---
SPOKE WITH HELGA FOWLER NP. STATES HE WILL RECONCILE MEDS.
[2018-06-04] MEDS: LORAZEPAM 1 MG TABLET PO PRN (09:31)
[2018-06-04] MEDS: NICOTINE 14 MG/24HR PATCH TD SCH (09:31)
[2018-06-04 15:19] VITALS: BP 121/75
--- NOTE | 2018-06-04 15:25 | NUR ---
Activity Group Note: Patients were asked to draw a picture of Fall and to join in discussion of what Fall means to them or any memories they may have of the Fall season. Subjective: "Look at my picture" [Patient made this statement to peer] Objective: Patient was engaged and participating in activity. Patient appeared to enjoy self and was asking peers to look at her art. Assessment: Patient needs frequent redirection and boundary setting when it comes to talking about her treatment plan. Patient continually would ask if its "time to see her doctor" or "when will I have a place to stay". Plan: Encourage group attendance and participation as scheduled. spring salvage worker will continue to provide boundary setting in regard to when it is an appropriate time to discuss patient treatment plan.
[2018-06-04] MEDS: ACETAMINOPHEN 325 MG TABLET PO PRN (15:32)
[2018-06-04] MEDS: HALOPERIDOL 5 MG TABLET PO SCH (16:56)
[2018-06-04] MEDS: DIVALPROEX ER 500 MG TAB.SR.24H PO SCH (16:56)
[2018-06-04] MEDS: BENZTROPINE MESYLATE 0.5 MG TABLET PO SCH (17:00)
--- NOTE | 2018-06-04 18:39 | NUR ---
CONTACTED HELGA FOWLER, ASKED FOR MED RECONCILIATION FOR THE PATIENT.
[2018-06-04] MEDS: TEMAZEPAM 7.5 MG CAPSULE PO PRN (20:04)
[2018-06-04 20:14] VITALS: BP 156/74
[2018-06-04] MEDS ORDERED: BISACODYL 10 MG SUPP.RECT RC PRN (21:15)
[2018-06-05] MEDS: LORAZEPAM 1 MG TABLET PO PRN ×2 (00:51→23:26)
[2018-06-05] MEDS: ACETAMINOPHEN 325 MG TABLET PO PRN (02:27)
--- NOTE | 2018-06-05 05:44 | NUR ---
No changes t/o shift. Patient slept appox. 4 hours total. Waking up intermittently t/o shift asking for pudding, paper and pencil to write. Patient remains easily agitated, at times raising her voice towards staff. However, patient remains compliant with medications. Ambulates with steady gait. Safety and and comfort measures maintained t/o shift. All meds given as ordered. All needs met.
[2018-06-05 07:30] VITALS: BP_SYST 106; BP_SYST 130; BP_DIAS 50; BP_DIAS 59
[2018-06-05] MEDS: NICOTINE 14 MG/24HR PATCH TD SCH (08:49)
[2018-06-05] MEDS: DIVALPROEX ER 500 MG TAB.SR.24H PO SCH ×2 (08:50→17:19)
[2018-06-05] MEDS: BENZTROPINE MESYLATE 0.5 MG TABLET PO SCH ×2 (08:50→17:19)
[2018-06-05] MEDS: FERROUS SULFATE 325 MG TABEC PO SCH (08:51)
[2018-06-05] MEDS: AMLODIPINE 5 MG TABLET PO SCH (08:51)
[2018-06-05] MEDS: HALOPERIDOL 5 MG TABLET PO SCH ×2 (08:52→17:19)
[2018-06-05] MEDS: SERTRALINE HCL 50 MG TABLET PO SCH (08:52)
--- NOTE | 2018-06-05 10:18 | NUR ---
Discharge Planning: community organization worker faxed patient packet to Jd [ ; ], regulatory coordinator, at [facility]. Jd is assisting in finding different placement for patient. community organization worker will await to hear if patient is accepted at [facility].
[2018-06-05] MEDS: CALCIUM CARB/VITAMIN D 500MG-200UNITS TABLET PO SCH (10:38)
[2018-06-05 15:43] VITALS: BP 118/73
[2018-06-05 20:21] VITALS: BP 145/89
[2018-06-05] MEDS: TEMAZEPAM 7.5 MG CAPSULE PO PRN (20:58)
--- NOTE | 2018-06-05 22:00 | NUR ---
gps: patient still awake. Repeat Restoril offered but patient refused to take it. stated this medication not working.
--- NOTE | 2018-06-05 23:35 | NUR ---
GPS; patient c/o anxiety. ativan 1 mg po given. continue monitoring for safety.
--- NOTE | 2018-06-06 00:35 | NUR ---
gps: patient is calm now. prn effective for anxiety.
[2018-06-06] MEDS: ACETAMINOPHEN 325 MG TABLET PO PRN (02:40)
--- NOTE | 2018-06-06 02:44 | NUR ---
GPS: PATIENT C/O HEADACHE TYLENOL 650 MG PO GIVEN PER PATIENT REQUESTED.
--- NOTE | 2018-06-06 06:00 | NUR ---
gps: patient stated i am feeling better now. prn for headache effective. slept only 1 hrs through the night.patient stated i was sleeping 7 hrs day time. patient wondering around in hallway most of the night. continue monitoring for safety.
[2018-06-06 07:30] VITALS: BP 141/78
[2018-06-06] MEDS: BENZTROPINE MESYLATE 0.5 MG TABLET PO SCH ×2 (09:22→17:25)
[2018-06-06] MEDS: CALCIUM CARB/VITAMIN D 500MG-200UNITS TABLET PO SCH (09:23)
[2018-06-06] MEDS: AMLODIPINE 5 MG TABLET PO SCH (09:23)
[2018-06-06] MEDS: HALOPERIDOL 5 MG TABLET PO SCH ×3 (09:23→20:07)
[2018-06-06] MEDS: SERTRALINE HCL 50 MG TABLET PO SCH (09:23)
[2018-06-06] MEDS: DIVALPROEX ER 500 MG TAB.SR.24H PO SCH ×2 (09:23→17:25)
[2018-06-06] MEDS: FERROUS SULFATE 325 MG TABEC PO SCH (09:23)
[2018-06-06] MEDS: NICOTINE 14 MG/24HR PATCH TD SCH (09:24)
[2018-06-06] MEDS: LORAZEPAM 1 MG TABLET PO PRN (10:34)
[2018-06-06 13:00] VITALS: BP 143/78
--- NOTE | 2018-06-06 16:00 | NUR ---
Discharge Planning: Patient is accepted at [facility] [[address] [place] [address]; ] once ready for discharge. Patient is accepting of placement.
[2018-06-06 19:30] VITALS: BP 136/87
[2018-06-06] MEDS: TEMAZEPAM 7.5 MG CAPSULE PO PRN (21:26)
[2018-06-07] MEDS: TEMAZEPAM 7.5 MG CAPSULE PO PRN ×2 (01:10→21:21)
--- NOTE | 2018-06-07 06:19 | NUR ---
Received Pt in the day room listening to music by herself with her eyes closed. Pt given snack with HS medication. While taking her meds, Pt stated, "I wish I was ." Pt denies any plan, but further stated, "I'm just sick of this life, I'm old and I'm ready." Pt was able to verbally contract for safety while inside the hospital. Exhibits blunted affect, Pt is depressed, hopeless, and helpless. Compliant with meds, VS stable, denied pain. Medicated with Restoril 7.5mgx2 with little effect. Remained restless, anxious, and uncooperative with staff direction. Pt is needy with snacks, and asked for them several times despite being given several snacks, becomes argumentative when given limits. In no acute physical distress.
--- NOTE | 2018-06-07 06:23 | NUR ---
Pharmacy Note: Pt asked for pain medication for "all over body pain", and when Tylenol was given to her she complained "That's not what I asked for." Tylenol 650mg wasted.
[2018-06-07 07:30] VITALS: BP 141/66
[2018-06-07] MEDS: BENZTROPINE MESYLATE 0.5 MG TABLET PO SCH ×2 (09:55→16:26)
[2018-06-07] MEDS: DIVALPROEX ER 500 MG TAB.SR.24H PO SCH ×2 (09:56→16:26)
[2018-06-07] MEDS: CALCIUM CARB/VITAMIN D 500MG-200UNITS TABLET PO SCH (09:56)
[2018-06-07] MEDS: FERROUS SULFATE 325 MG TABEC PO SCH (09:56)
[2018-06-07] MEDS: AMLODIPINE 5 MG TABLET PO SCH (09:56)
[2018-06-07] MEDS: HALOPERIDOL 5 MG TABLET PO SCH ×3 (09:56→20:00)
[2018-06-07] MEDS: NICOTINE 14 MG/24HR PATCH TD SCH (09:57)
[2018-06-07] MEDS: SERTRALINE HCL 50 MG TABLET PO SCH (09:57)
[2018-06-07 15:16] VITALS: BP 106/63
[2018-06-07] MEDS: ACETAMINOPHEN 325 MG TABLET PO PRN (16:26)
[2018-06-07 19:30] VITALS: BP 116/56
--- NOTE | 2018-06-07 19:30 | NUR ---
RECEIVED PATIENT IN THE HALLWAY. SHE IS NOTED A/O X 2. SHE IS ABLE TO AMBULATE WITH STEADY GAIT AND ABLE TO MAKE HER NEEDS KNOWN. V/S STABLE AT THIS TIME. UPON INTERVIEW, SHE IS NOTED BETTER THAN FEW DAYS AGO. LESS DEMANDING, LESS ARGUMENTATIVE, CONTINUE NEEDY, BLUNTED AFFECT LABILE BX. SHE DENIES SI/AH/VH. SHE ENJOYS LISTENING TO MUSIC IN THE DINNING AREA/DAY ROOM. SHE STATED THAT SHE WOULD LIKE TO GO TO A SNF AFTER SHE IS BEEN DISCHARGED FROM THIS HOSPITAL. SAFETY WAS EMPHASIS. WILL CONTINUE TO MONITOR.
--- NOTE | 2018-06-07 21:25 | NUR ---
PATIENT REQUESTED AN "SLEEPING PILLS". TEMAZEPAM 7.5MG PO PRN WAS GIVEN PER NURSING ASSESSMENT AND PATIENT'S REQUEST. WILL CONTINUE TO MONITOR.
[2018-06-08] MEDS: LORAZEPAM 1 MG TABLET PO PRN ×2 (05:53→14:29)
[2018-06-08] MEDS: ACETAMINOPHEN 325 MG TABLET PO PRN (05:53)
[2018-06-08 06:39] LABS: BILIRUBIN,TOTAL 0.3 mg/dL (0.2-1.0); CREATININE 1.1 mg/dL (0.6-1.3); TOTAL PROTEIN, SERUM 8.2 g/dL (6.4-8.2)
[2018-06-08 06:40] LABS: BASOPHILS # (AUTO) 0.1 K/uL (0.0-8.0); BASOPHILS % (AUTO) 1.1 % (0.0-2.0); EOSINOPHILS # (AUTO) 0.3 K/uL (0.0-0.7); EOSINOPHILS % (AUTO) 5.2 % (0.0-7.0); HEMATOCRIT 41.1 % (31.2-41.9); HEMOGLOBIN 13.9 g/dL (10.9-14.3); LYMPHOCYTES # (AUTO) 1.9 K/uL (20.0-40.0); LYMPHOCYTES % (AUTO) 38.9 % (20.5-51.5); MEAN CORPUSCULAR HEMOGLOBIN 30.8 uug (24.7-32.8); MEAN CORPUSCULAR HGB CONC 34 g/dL (32.3-35.6); MONOCYTES # (AUTO) 0.6 K/uL (2.0-10.0); MONOCYTES % (AUTO) 11.2 % (0.0-11.0); NEUTROPHILS # (AUTO) 2.2 K/uL (1.8-8.9); NEUTROPHILS % (AUTO) 43.6 % (38.5-71.5); PLATELET COUNT (AUTO) 179 K/uL (179-408); RED BLOOD CELL COUNT(AUTO) 4.52 MIL/uL (3.63-4.92)
--- NOTE | 2018-06-08 06:55 | NUR ---
PATIENT SLEPT FOR APPROX 7.00 HRS THROUGHOUT THE NIGHT. LABILE BX NOTED, NO AGGRESSIVE COMBATIVE BX NOTED DURING THE SHIFT.
--- NOTE | 2018-06-08 06:59 | NUR ---
PATIENT COMPLAINT WITH MEDICATION REGIMENT.
--- NOTE | 2018-06-08 07:19 | NUR ---
PATIENT SLEPT FOR APPROX 7.00 HRS THROUGHOUT THE NIGHT. SHE IS COMPLIANT WITH MEDICATION REGIMENT AND LABS.AT THIS TIME. NOTED LESS IRRITABLE, HOWEVER, CONTINUE WITH LABILE BX. WILL CONTINUE TO MONITOR.
[2018-06-08 07:30] VITALS: BP 140/50
[2018-06-08] MEDS: AMLODIPINE 5 MG TABLET PO SCH (08:23)
[2018-06-08] MEDS: BENZTROPINE MESYLATE 0.5 MG TABLET PO SCH ×2 (08:23→16:08)
[2018-06-08] MEDS: SERTRALINE HCL 50 MG TABLET PO SCH (08:23)
[2018-06-08] MEDS: CALCIUM CARB/VITAMIN D 500MG-200UNITS TABLET PO SCH (08:23)
[2018-06-08] MEDS: HALOPERIDOL 5 MG TABLET PO SCH ×3 (08:23→20:13)
[2018-06-08] MEDS: DIVALPROEX ER 500 MG TAB.SR.24H PO SCH ×2 (08:23→16:08)
[2018-06-08] MEDS: NICOTINE 14 MG/24HR PATCH TD SCH (08:23)
[2018-06-08] MEDS: FERROUS SULFATE 325 MG TABEC PO SCH (08:23)
[2018-06-08 16:00] VITALS: BP 115/71
[2018-06-08 20:13] VITALS: BP 135/72
[2018-06-08] MEDS: TEMAZEPAM 7.5 MG CAPSULE PO PRN ×2 (21:12→22:13)
--- NOTE | 2018-06-09 06:12 | NUR ---
GPS: PATIENT SLEPT FOR APPROX 6 HRS THROUGHOUT THE NIGHT AFTER REPEAT RESTORIL GIVEN. PATIENT COMPLIANT WITH MEDICATIONS .NO AGITATION NOTED AT THIS TIME. NOTED LESS IRRITABLE, CONTINUE NOTED PACING IN THE T[address] WAY.WILL CONTINUE TO MONITOR.
[2018-06-09 07:30] VITALS: BP 133/76
[2018-06-09] MEDS: DIVALPROEX ER 500 MG TAB.SR.24H PO SCH ×2 (09:17→17:31)
[2018-06-09] MEDS: BENZTROPINE MESYLATE 0.5 MG TABLET PO SCH ×2 (09:17→17:31)
[2018-06-09] MEDS: NICOTINE 14 MG/24HR PATCH TD SCH (09:17)
[2018-06-09] MEDS: CALCIUM CARB/VITAMIN D 500MG-200UNITS TABLET PO SCH (09:17)
[2018-06-09] MEDS: SERTRALINE HCL 50 MG TABLET PO SCH (09:18)
[2018-06-09] MEDS: HALOPERIDOL 5 MG TABLET PO SCH ×2 (09:18→17:31)
[2018-06-09] MEDS: AMLODIPINE 5 MG TABLET PO SCH (09:19)
[2018-06-09 15:05] VITALS: BP 116/55
[2018-06-09] MEDS: ACETAMINOPHEN 325 MG TABLET PO PRN (19:57)
[2018-06-09 20:00] VITALS: BP 109/54
[2018-06-09] MEDS ORDERED: HALOPERIDOL LACTATE 10 MG/5 ML ORAL SOLUTION UDC PO SCH (21:00)
[2018-06-09] MEDS: TEMAZEPAM 7.5 MG CAPSULE PO PRN (22:17)
[2018-06-10] MEDS: ACETAMINOPHEN 325 MG TABLET PO PRN (02:57)
[2018-06-10 07:02] LABS: BASOPHILS % (AUTO) 1.1 % (0.0-2.0); EOSINOPHILS # (AUTO) 0.2 K/uL (0.0-0.7); EOSINOPHILS % (AUTO) 5.5 % (0.0-7.0); HEMATOCRIT 36.9 % (31.2-41.9); HEMOGLOBIN 12.4 g/dL (10.9-14.3); LYMPHOCYTES # (AUTO) 1.6 K/uL (20.0-40.0); LYMPHOCYTES % (AUTO) 37.6 % (20.5-51.5); MEAN CORPUSCULAR HEMOGLOBIN 31.3 uug (24.7-32.8); MEAN CORPUSCULAR HGB CONC 34 g/dL (32.3-35.6); MEAN CORPUSCULAR VOLUME 92.9 fL (75.5-95.3); MONOCYTES # (AUTO) 0.6 K/uL (2.0-10.0); NEUTROPHILS # (AUTO) 1.8 K/uL (1.8-8.9); NEUTROPHILS % (AUTO) 42.8 % (38.5-71.5); PLATELET COUNT (AUTO) 154 K/uL (179-408); RED BLOOD CELL COUNT(AUTO) 3.97 MIL/uL (3.63-4.92); WHITE BLOOD COUNT (AUTO) 4.3 K/uL (3.8-11.8)
[2018-06-10 07:22] LABS: CREATININE 1.1 mg/dL (0.6-1.3); MAGNESIUM 2.1 mg/dL (1.8-2.4); PHOSPHOROUS 4.6 mg/dL (2.5-4.9); POTASSIUM 5.2 mmol/L (3.5-5.1)
[2018-06-10 07:30] VITALS: BP 131/68
[2018-06-10 08:38] VITALS: BP 131/68
[2018-06-10] MEDS: AMLODIPINE 5 MG TABLET PO SCH (08:38)
[2018-06-10] MEDS: DIVALPROEX ER 500 MG TAB.SR.24H PO SCH (08:38)
[2018-06-10] MEDS: NICOTINE 14 MG/24HR PATCH TD SCH (08:38)
--- NOTE | 2018-06-10 08:38 | NUR ---
Discharge Note: Patient will be discharged to [facility] [[address] [place] [address]; ] and transportation will be provided by ambulance at 1:00pm. Please arrange ambulance transportation for patient. cardroom worker has confirmed discharge back to facility with Jolanta, social media coordinator, who is ready to accept patient. Patient is aware and agreeable with discharge plan. Patient is alert and oriented x4 and denies any SI/HI. Patient will follow-up with Dr. Cole (housing inspector) and Dr. Mario (psychiatrist). Patient was given outpatient mental health resources [facility] Crisis Line , Ophelia Andino , and the National Suicide Prevention Lifeline .
[2018-06-10] MEDS: SERTRALINE HCL 50 MG TABLET PO SCH (08:39)
[2018-06-10] MEDS: CALCIUM CARB/VITAMIN D 500MG-200UNITS TABLET PO SCH (08:39)
[2018-06-10] MEDS: BENZTROPINE MESYLATE 0.5 MG TABLET PO SCH (08:39)
[2018-06-10] MEDS ORDERED: HALOPERIDOL LACTATE 10 MG/5 ML ORAL SOLUTION UDC PO SCH (09:00)
[2018-06-10] MEDS: LORAZEPAM 1 MG TABLET PO PRN (11:57)
--- NOTE | 2018-06-10 13:15 | NUR ---
GPS: Nursing Notes: Discharge Notes: Patient is awake and responding to her name, cooperative with nursing care, compliant with her medications, following staff directions, denies any SI/HI, denies any AH/VH, A/Ox3, denies any pain or discomfort, denies any SOB, discharge to [facility] at [address] [place] [phone] , report given to facility's nurse - ANDRY Phillips, transported to facility via ambulance. Patient will follow-up with Dr. Cole (master technician) and Dr. Mario (psychiatrist). Patient was given outpatient mental health resources [facility] Crisis Line , Ophelia Andino , and the National Suicide Prevention Lifeline .
== END 2018-06-10 13:15 | DRG 885 ==
LOC: ER 20:05 → GPS 21:37
PROVIDERS: ADMIT Psychiatry & Neurology Psychiatry; ATTEND Internal Medicine
DX: F25.0 Schizoaffective disorder, bipolar type (principal); N17.0 Acute kidney failure with tubular necrosis; D69.6 Thrombocytopenia, unspecified; I10 Essential (primary) hypertension; E87.5 Hyperkalemia; E03.9 Hypothyroidism, unspecified; D50.9 Iron deficiency anemia, unspecified; F41.9 Anxiety disorder, unspecified; G47.00 Insomnia, unspecified; K59.09 Other constipation; Z87.891 Personal history of nicotine dependence; Z86.14 Personal history of Methicillin resistant Staphylococcus aureus infection; E86.0 Dehydration; T50.905A Adverse effect of unspecified drugs, medicaments and biological substances, initial encounter; Y92.129 Unspecified place in nursing home as the place of occurrence of the external cause
CPT/HCPCS: 36415; 70030-TC; 71045; 80164; 80307; 83735; 84100; 84443; 85025; 85730; 93005; A4663; A9150; G0480